=== PATIENT | male | born 1985 | race Caucasian/White ===

== ENCOUNTER → 2017-10-08 | Outpatient (CLI) | payer OTHER ==
[2017-10-08 10:53] LABS: HEP C IGG 13 YRS+OLDER_RFLX NEG (NEG)
== END | disposition home or self-care (01) ==
LOC: C.LAB 08:40
PROVIDERS: ATTEND Specialist
DX: Z11.3 Encounter for screening for infections with a predominantly sexual mode of transmission (principal); Z11.4 Encounter for screening for human immunodeficiency virus [HIV]; Z11.59 Encounter for screening for other viral diseases